=== PATIENT | male | born 1990 | race Caucasian/White ===

== ENCOUNTER 2019-08-28 15:06 | Emergency (ER) | payer SELFPAY ==
[2019-08-28 15:14] VITALS: BP 129/84; PULSE 86; RESP 12; TEMP 37.1; O2SAT 97; BMI 22.0
--- NOTE | 2019-08-28 17:11 | W.ED.WOUNDLC ---
HPI - Wound/Laceration General: Chief Complaint: Wound/Laceration Stated Complaint: knee laceration Time Seen by Provider: 08/28/19 17:11 Source: patient Mode of arrival: ambulatory Limitations: no limitations History of Present Illness: HPI narrative: Patient comes in with a laceration to the anterior left knee. 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 Patient woke up this morning and it was more tender to touch. Patient appears well. Patient appears in no acute distress. Review of Systems General: Reports: 10 or more systems reviewed and unremarkable except in HPI and below Skin/Breast: Reports: other (Laceration left knee.) PFSH ED PFSH: Social History Smoking and tobacco status: current every day smoker Physical Exam Const: COMMON NORMALS: no acute distress and patient oriented x3 GENERAL APPEARANCE: cooperative HENMT: COMMON NORMALS: normocephalic and Normal external nose present HEAD & SCALP: normal to inspection and normocephalic NOSE: Normal external nose present MOUTH: Normal oral and palatal mucosa present THROAT: posterior oropharynx normal Eye: GENERAL EYE: appearance normal, both eyes and all related structures Neck/C-Spine: COMMON NORMALS: full ROM Chest: COMMONS NORMALS: normal inspection of the chest Resp: COMMON NORMALS: normal respiratory effort EFFORT & INSPECTION: Yes able to speak in complete sentences Cardio: COMMON NORMALS: regular rate and regular rhythm RATE: regular rate RHYTHM: regular rhythm GI: COMMON NORMALS: non-tender Back/Pelvis: COMMON NORMALS: thoracic and lumbar spine normal to inspection Extremity: COMMON NORMALS: normal to inspection Neuro: COMMON NORMALS: patient oriented x3 and moves all extremities Psych: COMMON NORMALS: mental status grossly normal and cooperative Skin: COMMON NORMALS: no rashes or lesions noted GENERAL SKIN EXAM: no rashes or lesions noted Course Vital Signs: Vital signs: Vital Signs Temperature 98.7 F 08/28/19 15:14 Pulse Rate 75 08/28/19 17:51 Respiratory Rate 16 08/28/19 17:51 Blood Pressure 143/92 08/28/19 17:51 Pulse Oximetry 99 08/28/19 17:51 MDM - Wound/Laceration MDM Narrative: Medical decision making narrative: Patient presents with a 2 cm laceration to the patella area of the left knee. On exam patient has a healing laceration which he reports is about 12 to 24 hours old. Patient has some redness about 4 cm surrounding the wound. Patient reports pain with movement. Differential diagnosis includes laceration, foreign body, infections. X-ray noted no foreign body. Suspect may be a mild wound infection recommended antibiotic for treatment of wound infection. Recommend Tylenol ibuprofen as needed for pain. Recommend follow-up with primary care for worsening symptoms or return to the ER for high fever. Discharge Plan Discharge Patient Disposition: Home, Self-Care Clinical Impression: Laceration Condition: Stable Prescriptions: New cephalexin 500 mg capsule 500 mg PO BID 7 Days Qty: 14 RF: 0 ibuprofen 600 mg tablet 600 mg PO Q6H PRN (Reason: pain) Qty: 20 RF: 0 hydrocodone-acetaminophen 5-325 mg tablet 1 tab PO Q8H PRN (Reason: pain (scale score 7-10)) Qty: 6 RF: 0 Referrals: Dinah Quispe FNP [Primary Care Provider] - Discharge Diet: Usual diet Discharge Activity: Increase activity as tolerated Patient Instructions: Laceration (ED) Activity Restrictions/Additional Instructions: Keep wound clean and dry. Dress wound with antibiotic ointment and gauze for protection. Take medications as directed. Follow-up with primary care in 1 week. Return to the ER for high fever or worsening symptoms. Coding Level of Care Code ED As400 Developer for Yola Morley Exam Comprehensive
--- NOTE | 2019-08-28 17:28 | XRR_ITS ---
PROCEDURE INFORMATION: Exam: XR Left Knee Exam date and time: 08/28/2019 5:41 PM Age: 29 years old Clinical indication: Injury or trauma; Fall; Initial encounter; Blunt trauma; Knee; Bilateral; Additional info: Laceration, R/O fb TECHNIQUE: Imaging protocol: XR Left knee. Views: 3 views. COMPARISON: No relevant prior studies available. FINDINGS: Bones/joints: Negative for acute bony abnormality. A small bone island is seen in the proximal medial tibial plateau. Soft tissues: Negative for soft tissue foreign body XR/XR knee LT 3V* [id number] IMPRESSION: No acute findings. Negative for soft tissue foreign body
[2019-08-28 17:51] VITALS: BP 143/92; PULSE 75; RESP 16; O2SAT 99
[2019-08-28] MEDS: cephALEXin 500 mg Capsule PO (17:58)
[2019-08-28] MEDS: HYDROcodone-acetaminophen 5-325 mg Tablet 1 TAB PO (17:58)
[2019-08-28] MEDS: ibuprofen 200 mg Tablet 400 MG PO (17:59)
--- NOTE | 2019-08-28 18:18 | PC.NURSE ---
cleaned wound,cover with telfa secured with kerlex. Pt tolerated well.
[2019-08-28 18:26] VITALS: BP 143/92; PULSE 75; RESP 16; TEMP 36.6; O2SAT 99
== END 2019-08-28 18:28 | disposition home or self-care (01) ==
PROVIDERS: Emergency Provider Nurse Practitioner Family; PCP Nurse Practitioner
DX: S81.012A Laceration without foreign body, left knee, initial encounter (principal); W26.0XXA Contact with knife, initial encounter; F17.210 Nicotine dependence, cigarettes, uncomplicated
CPT/HCPCS: 12345; 73562; 99281; 99283

== ENCOUNTER → 2020-09-26 13:36 | Outpatient (BNVA) | payer SELFPAY | PROVIDERS: PCP Family Medicine; Visit Provider Family Medicine | DX: F17.209 Nicotine dependence, unspecified, with unspecified nicotine-induced disorders (principal); R79.89 Other specified abnormal findings of blood chemistry; Z76.89 Persons encountering health services in other specified circumstances; I10 Essential (primary) hypertension | CPT/HCPCS: 80053 ==

== ENCOUNTER 2022-11-06 09:24 | Emergency (ER) | payer SELFPAY ==
[2022-11-06 09:31] VITALS: BP 148/94; PULSE 112; RESP 18; TEMP 36.5; O2SAT 99; BMI 26.6
--- NOTE | 2022-11-06 09:40 | ED_ITS ---
HPI - Skin/Abscess/Foreign Bdy General: Chief complaint: Animal Bite Stated complaint: spider bite Time Seen by Provider: 11/06/22 09:25 Source: patient Mode of arrival: ambulatory History of Present Illness: 32-year-old male presents emergency room he had an abscess on the dorsum of the right wrist treatment present for a while he drained it at home yesterday had a significant amount of purulent drainage now has an ulcerated base no active drainage at this point. Is able to flex and extend the wrist without significant difficulty is also got some redness on the tip of his nose. complaint: abscess/boil Onset (ago): day(s) Associated symptoms: Deny arthralgias, chills, cough, fever(s), itching, myalgias, nausea, rigidity, short of breath or vomiting Treatments prior to arrival: attempted to drain pus at home Review of Systems Const: Denies: fever(s) or chills Card: Denies: chest pain Resp: Denies: dyspnea GI: Denies: nausea or vomiting Skin/Breast: Reports: erythema and new lesions PFSH ED PFSH: Social History Smoking and tobacco status: current every day smoker e-cigarettes E-Cigarette Details: vaporizer device Quit status (tobacco): not considering quitting Second hand smoke exposure: No Alcohol intake: never Desire information about alcohol rehabilitation?: No Substance/Drug Use: never Desire information about substance/drug rehabilitation?: No Physical Exam Const: GENERAL APPEARANCE: cooperative and comfortable ORIENTATION/CONSCIOUSNESS: Yes awake, Yes oriented to person, Yes oriented to place and Yes oriented to time HENMT: COMMON NORMALS: normocephalic, atraumatic and hearing grossly normal bilaterally HEAD & SCALP: normocephalic and atraumatic Resp: COMMON NORMALS: normal respiratory effort, No retractions, No use of accessory muscles and clear to auscultation bilaterally AUSCULTATION: clear to auscultation bilaterally Cardio: COMMON NORMALS: regular rate, regular rhythm and No murmurs present (Cardio) RATE: regular rate RHYTHM: regular rhythm Extremity: COMMON NORMALS: normal to inspection, capillary refill normal, no clubbing, cyanosis or edema, no calf tenderness and no pedal edema Neuro: SENSORIUM/ORIENTATION: Yes oriented to person, Yes oriented to place and Yes oriented to time Skin: OTHER: Tip of the nose is red mildly inflamed and tender no abscess present on the right side of the base of the neck there is a mildly swollen area no significant erythema dry eschar in place slightly tender to touch nonfluctuant. On the dorsum of the right wrist there is a open wound appears to have been an abscess that was drained at home there is mucus debris at its base no active drainage attempted to express fluid none present culture done wound probed with a cotton swab is approximately 1 cm deep is open no drainage noted after probing. Course Vital Signs: Vital signs: Vital Signs Temperature 97.7 F 11/06/22 09:31 Pulse Rate 115 H 11/06/22 10:12 Respiratory Rate 18 11/06/22 09:31 Blood Pressure 148/90 11/06/22 10:12 Pulse Oximetry 99 11/06/22 10:12 Oxygen Delivery Me thod Room Air 11/06/22 09:31 MDM - Skin/Abscess/Foreign Bdy Medicial Decision Making Culture done started on Bactrim apply topical antibiotic ointment recheck with primary care if has any worsening change symptoms return suspect are MRSA Discharge Plan Discharge Patient Disposition: Home Clinical Impression: Cellulitis Condition: Stable Prescriptions: New Bactrim DS 800-160 mg tablet 1 tab PO BID 14 Days Qty: 28 0RF mupirocin 2 % ointment 1 applic topical BID Qty: 22 0RF Rx Instructions: Apply to the nares and the wound on the right wrist twice a day No Action vitamin B complex [B Complex-Vitamin B12] Tablet 1 tab PO DAILY One-A-Day Men's 50 Plus(vit K) 400-20-370 mcg tablet 1 tab PO DAILY Discharge Orders: Discharge ED (Routine); Ordered 11/06/22 Ordered By: Darwin Gruber Referrals: Ran Joe DO [Primary Care Provider] - Discharge Diet: Usual diet Discharge Activity: Resume usual activity Patient Instructions: Cellulitis (ED), Opioid Safety, Pain Management Activity Restrictions/Additional Instructions: If you develop fever or worsening symptoms follow-up with your primary care doctor or return to the emergency room. Coding Level of Care Code ED Beauty Culturist for Yola Morley
[2022-11-06 10:12] VITALS: BP 148/90; PULSE 115; O2SAT 99
== END 2022-11-06 10:13 | disposition home or self-care (01) ==
PROVIDERS: Emergency Provider Family Medicine; PCP Family Medicine
DX: L03.113 Cellulitis of right upper limb (principal); J34.0 Abscess, furuncle and carbuncle of nose; F17.290 Nicotine dependence, other tobacco product, uncomplicated
CPT/HCPCS: 87070; 87075; 87077; 87186; 87205; 99283